=== PATIENT | male | born 1995 | race Caucasian/White ===

== ENCOUNTER 2022-01-26 22:12 | Emergency (ER) | payer SELFPAY ==
[2022-01-26] MEDS ORDERED: Lisinopril 10 MG Tab PO STA (23:16)
[2022-01-26] MEDS ORDERED: Lisinopril 20 MG Tab PO STA (23:17)
== END 2022-01-27 00:33 | disposition home or self-care (01) ==
LOC: JD.ED 22:12
DX: R07.89 Other chest pain (principal); I10 Essential (primary) hypertension; F17.210 Nicotine dependence, cigarettes, uncomplicated; Z86.16 Personal history of COVID-19; Z79.899 Other long term (current) drug therapy
CPT/HCPCS: 36415; 71046; 80053; 83735; 83880; 84484; 85025; 85379; 93005; 99285; A9270; 93010

== ENCOUNTER 2022-09-20 18:13 | Emergency (ER) | payer OTHER | END 2022-09-20 21:49 | disposition home or self-care (01) | LOC: JD.ED 18:13 | DX: S40.011A Contusion of right shoulder, initial encounter (principal); S50.01XA Contusion of right elbow, initial encounter; I10 Essential (primary) hypertension; E66.9 Obesity, unspecified; Z68.42 Body mass index [BMI] 45.0-49.9, adult; Z72.0 Tobacco use; Z79.899 Other long term (current) drug therapy; V69.9XXA Occupant (driver) (passenger) of heavy transport vehicle injured in unspecified traffic accident, initial encounter; Y92.410 Unspecified street and highway as the place of occurrence of the external cause | CPT/HCPCS: 71046; 71046-26; 73020-26-RT; 73020-RT; 73070-26-RT; 73070-RT; 99284 ==

== ENCOUNTER 2023-08-22 09:14 | Emergency (ER) | payer BC, OTHER | END 2023-08-22 10:48 | disposition home or self-care (01) | LOC: JD.ED 09:14 | DX: M25.561 Pain in right knee (principal); I10 Essential (primary) hypertension; E66.9 Obesity, unspecified; F17.210 Nicotine dependence, cigarettes, uncomplicated; Z68.42 Body mass index [BMI] 45.0-49.9, adult; Z86.16 Personal history of COVID-19; Z88.8 Allergy status to other drugs, medicaments and biological substances; W54.1XXA Struck by dog, initial encounter | CPT/HCPCS: 73562-26-RT; 73562-RT; 99283 ==